=== PATIENT | female | born 1955 | race Caucasian/White ===

== ENCOUNTER 2022-02-10 04:11 | Day surgery (SDCO) | payer OTHER ==
[~2022-02-10] VITALS: Ht 173 cm; Wt 159.0 kg
[~2022-02-10 04:11] MED LIST: 3IN1 COMMODE XX; BUMETANIDE1 MG PO; BUSPIRONE HCL15 MG PO; CARVEDILOL12.5 MG PO; COLCHICINE0.6 MG PO; COLESTIPOL HCL1 GM PO; COREG25 MG PO; FLONASE ALLER15.8 ML; IMODIUM A-D2 MG PO; LIPITOR 10MG TA10 MG PO; LIPITOR20 MG PO; LISINOPRIL-HCT1 EAC1 PO; METFORMIN HCL500 MG PO; MICON-GUARD 2% TOP; NORCO 5-325 TA1 EACH PO; NORVASC5 MG PO; OMEPRAZOLE40 MG PO; PRILOSEC20 MG PO; PRINIVIL10 MG PO; ULTRA-LIGHT RO1 EACH XX; VENTOLIN HFA18 GM INH; XIFAXAN550 MG PO
[2022-02-10 04:42] LABS: BASOPHIL 0.6 % (0-2); EOSINOPHIL 1.1 % (0-7); HCT 43.7 % (37.0-47.0); HGB 14.4 g/dl (12.5-16.0); LYMPHOCYTE 26.8 % (15-48); MCH 30.9 pg (25.0-31.0); MCV 93.8 fL (78.0-100.0); MONOCYTE 6.7 % (0-12); MPV 9.2 fL (6.0-9.5); NEUTROPHIL 64.5 % (41-80); NRBC 0; PLT 247 K/uL (150-400); RBC 4.66 M/uL (4.20-5.40); RDW 13.2 % (11.5-14.0); WBC 9.3 K/uL (4.0-10.5)
[2022-02-10 05:05] LABS: BILIRUBIN NEGATIVE (NEGATIVE); BLOOD NEGATIVE Ery/uL (NEGATIVE); CLARITY CLEAR (CLEAR); COLOR YELLOW (YELLOW); GLUCOSE (U) NORMAL (NORMAL); LEUKOCYTES 1+ Leu/uL (NEGATIVE); NITRITE NEGATIVE (NEGATIVE); PROTEIN NEGATIVE (NEGATIVE); SPECIFIC GRAVITY 1.015 (1.001-1.030); UROBILINOGEN 0.2 mg/dL (0.2-1.0)
[2022-02-10 05:06] LABS: ALBUMIN 3.9 g/dL (3.4-5.0); BILIRUBIN - TOTAL 0.5 mg/dL (0.2-1.0); BUN/CREAT RATIO (CALC) 16.7 RATIO; CREATININE 0.84 mg/dL (0.51-0.95); GLOBULIN (CALCULATION) 3.5 g/dL; POTASSIUM 3.9 mmol/L (3.5-5.1); TOTAL PROTEIN 7.4 g/dL (6.4-8.2)
[2022-02-10 05:12] LABS: BACTERIA 1+
[2022-02-10] MEDS ORDERED: PANTOPRAZOLE SO40 MG PO (05:17)
[2022-02-10] MEDS ORDERED: BUMEX1 MG PO (10:45)
[2022-02-10] MEDS ORDERED: ZESTRIL2.5 MG PO (10:46)
[2022-02-10] MEDS ORDERED: LIPITOR20 MG PO (10:47)
[2022-02-10] MEDS ORDERED: NORVASC2.5 MG PO (10:48)
[2022-02-10] MEDS ORDERED: BUSPIRONE HCL15 MG PO (10:48)
[2022-02-10] MEDS ORDERED: COREG25 MG PO (10:49)
[2022-02-10] MEDS ORDERED: VITAMIN D31 ML PO (10:50)
[2022-02-10] MEDS ORDERED: ASCORBIC ACID500 MG PO (10:51)
[2022-02-10] MEDS ORDERED: COLESTID 1GM TAB1 GM PO (10:52)
[2022-02-11 07:02] LABS: BASOPHIL 0.6 % (0-2); EOSINOPHIL 1.1 % (0-7); HCT 44.5 % (37.0-47.0); HGB 14.1 g/dl (12.5-16.0); LYMPHOCYTE 31.7 % (15-48); MCH 30.2 pg (25.0-31.0); MCHC 31.7 g/dL (32.0-36.0); MCV 95.3 fL (78.0-100.0); MPV 9.1 fL (6.0-9.5); NEUTROPHIL 58.3 % (41-80); NRBC 0; PLT 213 K/uL (150-400); RBC 4.67 M/uL (4.20-5.40); RDW 13.3 % (11.5-14.0); WBC 6.4 K/uL (4.0-10.5)
[2022-02-11 07:26] LABS: BUN/CREAT RATIO (CALC) 10.5 RATIO; CREATININE 1.05 mg/dL (0.51-0.95); POTASSIUM 4.4 mmol/L (3.5-5.1)
[2022-02-12 07:08] LABS: BASOPHIL 0.8 % (0-2); HCT 43.7 % (37.0-47.0); HGB 13.8 g/dl (12.5-16.0); LYMPHOCYTE 31.5 % (15-48); MCH 30.5 pg (25.0-31.0); MCHC 31.6 g/dL (32.0-36.0); MCV 96.7 fL (78.0-100.0); MONOCYTE 8.3 % (0-12); MPV 9.5 fL (6.0-9.5); NRBC 0; PLT 214 K/uL (150-400); RBC 4.52 M/uL (4.20-5.40); RDW 13.2 % (11.5-14.0); WBC 7.7 K/uL (4.0-10.5)
[2022-02-12 07:16] LABS: CREATININE 1.63 mg/dL (0.51-0.95); POTASSIUM 4.6 mmol/L (3.5-5.1)
[2022-02-13] MEDS ORDERED: PROTONIX 40MG T40 MG PO (12:31)
[2022-02-13] MEDS ORDERED: NORCO 5-325 TA1 EACH PO (12:31)
== END 2022-02-13 15:55 | disposition home or self-care (01) ==
LOC: FER 04:11 → FMS 08:46
PROVIDERS: Emergency Medicine; ADMIT Internal Medicine
DX: K29.50 Unspecified chronic gastritis without bleeding (principal); K29.80 Duodenitis without bleeding; K44.9 Diaphragmatic hernia without obstruction or gangrene; K58.2 Mixed irritable bowel syndrome; E66.01 Morbid (severe) obesity due to excess calories; J45.909 Unspecified asthma, uncomplicated; I12.9 Hypertensive chronic kidney disease with stage 1 through stage 4 chronic kidney disease, or unspecified chronic kidney disease; E11.22 Type 2 diabetes mellitus with diabetic chronic kidney disease; N18.9 Chronic kidney disease, unspecified; U07.1 COVID-19; I31.3 Pericardial effusion (noninflammatory); I25.2 Old myocardial infarction; E78.00 Pure hypercholesterolemia, unspecified; Z85.828 Personal history of other malignant neoplasm of skin
CPT/HCPCS: 36415; 74019; 80048; 80053; 81001; 83690; 84484; 85025; 87088; 94010; C9113; G0378; J0696; J1170; J2250; J2405; J7030; U0002